=== PATIENT | male | born 1955 ===

== ENCOUNTER 2024-09-09 06:40 | Observation (INO) ==
[~2024-09-09 06:40] MED LIST: Bupivacaine 0.25% SDV 30 ML ONE; Naloxone 0.4 mg VIAL 0.4 mg/ml 1 ml VIAL IV PRN; Ondansetron 4 mg VIAL 2 MG/ML 2 ml VIAL IV PRN; Tranexamic Acid 1 GM/100ML BAG 2,000 MG/200 ML BAG IV ONE; fentaNYL 100 mcg/2 ml 50 MCG/ML VIAL IV PRN
[2024-09-09] MEDS ORDERED: fentaNYL 250 mcg/5 ml 50 MCG/ML 5 ml VIAL (250 MCG) ONE (06:59)
[2024-09-09] MEDS ORDERED: Midazolam 2 mg/2 ml VIAL 1 mg/ml 2 ml VIAL (2 mg) ONE (06:59)
[2024-09-09] MEDS ORDERED: Tranexamic Acid 1 GM/100ML BAG 2,000 MG/200 ML BAG IV ONE (07:02)
[2024-09-09] MEDS ORDERED: Propofol 10 MG/ML 20 ML BTL ONE (07:02)
[2024-09-09] MEDS ORDERED: Famotidine IV 10 MG/ML 2 ml VIAL (20 mg) ONE (07:02)
[2024-09-09] MEDS ORDERED: Lidocaine 2% PF 5 ML VIAL ONE (07:02)
[2024-09-09] MEDS ORDERED: ceFAZolin 2 GM PREMIX 2 GM/50 ML BAG ONE (07:02)
[2024-09-09 07:17] LABS: Rapid COVID-19 Molecular Undetected (Undetected)
[2024-09-09] MEDS: Famotidine IV 10 MG/ML 2 ml VIAL (20 mg) IV ONE (07:28)
[2024-09-09] MEDS: Lactated Ringers 1000 ml BAG 1,000 ML IV SCH ×2 (07:29→13:40)
[2024-09-09] MEDS ORDERED: Ondansetron 4 mg VIAL 2 MG/ML 2 ml VIAL ONE (11:11)
[2024-09-09] MEDS ORDERED: Lactulose 30 ml UDC PO PRN (11:31)
[2024-09-09] MEDS ORDERED: Ondansetron ODT 4 mg TAB 4 MG TAB PO PRN (11:31)
[2024-09-09] MEDS ORDERED: Morphine 2 MG/ML SYRINGE IV PRN (11:31)
[2024-09-09] MEDS ORDERED: Calcium Carb (TUMS) 500 mg CHEW TAB PO PRN (11:31)
[2024-09-09] MEDS ORDERED: Magnesium Hydroxide LIQ 30 ML UDC PO PRN (11:31)
[2024-09-09] MEDS ORDERED: Dextrose 50% Syringe 50 ml 25 GM/50 ML SYRINGE IV PUSH PRN (12:00)
[2024-09-09] MEDS: BUPIVACAINE **LIPOSOME/PF 13.3 MG/ML (266MG/ 20ML) VIAL (RESTRICTED) INFIL ONE (13:36)
[2024-09-09] MEDS: Ondansetron 4 mg VIAL 2 MG/ML 2 ml VIAL IV PRN (13:58)
[2024-09-09] MEDS: ceFAZolin 2 GM PREMIX 2 GM/50 ML BAG IV SCH (17:39)
[2024-09-09] MEDS: Buffered Lidocaine 1% SYRIN 1 ml INTRADERM ONE (18:17)
[2024-09-09] MEDS: Magnesium Hydroxide LIQ 30 ML UDC PO SCH (21:03)
[2024-09-10 06:15] LABS: Hematocrit 36.1 % (38-53); Hemoglobin 12.2 g/dL (13.2-16.3); Mean Platelet Volume 8.5 fL (7.5-11.2); Platelet Count 166 10^3/uL (150-450)
[2024-09-10 07:37] LABS: Anion Gap 10 mmol/L (2-16); Blood Urea Nitrogen 20 mg/dL (6-24); CO2 Carbon Dioxide 24 mmol/L (22-32); Calcium 8.2 mg/dL (8.6-10.3); Chloride 102 mmol/L (101-111); Creatinine, Serum 0.78 mg/dL (0.67-1.17); Glucose 157 mg/dL (70-100); Sodium 136 mmol/L (135-145); eGFR CKD-EPI 97.1 (>60)
[2024-09-10] MEDS: Vitamin THERAPEUTIC TAB PO SCH (09:35)
[2024-09-10 11:29] VITALS: BP 119/65
== END 2024-09-10 13:13 | disposition home or self-care (01) ==
LOC: OR 06:40 → SSU 06:40
PROVIDERS: ADMIT Orthopaedic Surgery Sports Medicine; ATTEND Orthopaedic Surgery Sports Medicine